=== PATIENT | male | born 1950 | race Hispanic/Latino ===

== ENCOUNTER → 2024-06-20 | Day surgery (SDC) | payer MEDICARE ==
[2024-06-17 13:29] LABS: BASOPHILS % 0.5 % (0.0-1.0); EOSINOPHILS # (AUTO) 0.2 (0.0-0.4); EOSINOPHILS % 2.3 % (0.0-6.0); HEMATOCRIT 49.7 % (38.2-49.6); HEMOGLOBIN 16.1 g/dL (14.0-18.0); LYMPHOCYTES # (AUTO) 2.1 (1.0-3.2); LYMPHOCYTES % 28.3 % (18.0-39.1); MEAN CORPUSCULAR HGB CONC 32.4 g/dL (31-35); MEAN CORPUSCULAR VOLUME 101.8 fL (81-99); MONOCYTES # (AUTO) 0.6 (0.2-0.8); MONOCYTES % 8.8 % (4.4-11.3); NEUTROPHILS # (AUTO) 4.4 (2.1-6.9); NEUTROPHILS % 59.7 % (38.7-80.0); PLATELET COUNT 171 x10e3/uL (140-360); RED BLOOD COUNT 4.88 x10e6/uL (4.3-5.7); RED CELL DISTRIBUTION WIDTH 12.8 % (11.7-14.4); WHITE BLOOD COUNT 7.31 x10e3/uL (4.8-10.8)
[2024-06-17 13:52] LABS: CREATININE, SERUM 0.78 mg/dL (0.72-1.25)
[2024-06-17 13:53] LABS: CALCIUM 9.4 mg/dL (8.4-10.2)
[~2024-06-20] MED LIST: FENTANYL CITRATE/PF 100MCG/2 ML INJ ONE; LACTATED RINGER'S 1,000 ML ONE; LIDOCAINE HCL 2% LOCAL INJ 5 ML SDV VIAL INJ ONE; MIDAZOLAM HCL 2 MG/2 ML VIAL ONE; MULTI-VITAMIN1 EACH PO; PROPOFOL IV EMULSION 10 MG/ML 20 ML VIAL ONE
[2024-06-20 13:19] VITALS: TEMP 97.6
[2024-06-20 13:40] VITALS: BP 140/90; PULSE 50; RESP 18; O2SAT 99
== END | disposition home or self-care (01) ==
LOC: OR 08:44
PROVIDERS: ATTEND Ophthalmology
DX: H11.052 Peripheral pterygium, progressive, left eye (principal); E66.01 Morbid (severe) obesity due to excess calories; I10 Essential (primary) hypertension; Z01.810 Encounter for preprocedural cardiovascular examination; Z01.812 Encounter for preprocedural laboratory examination
CPT/HCPCS: 36415; 65426; 80048; 85025; 88304; 93005; J2003; J2250; J2704; J3010; J7121; V2790

== ENCOUNTER → 2024-08-01 | Day surgery (SDC) | payer MEDICARE ==
[2024-07-30 13:53] LABS: BASOPHILS # (AUTO) 0.1 (0.0-0.1); BASOPHILS % 0.8 % (0.0-1.0); EOSINOPHILS # (AUTO) 0.2 (0.0-0.4); HEMATOCRIT 45.9 % (38.2-49.6); HEMOGLOBIN 16.5 g/dL (14.0-18.0); LYMPHOCYTES % 26.9 % (18.0-39.1); MEAN CORPUSCULAR HEMOGLOBIN 33.5 pg (28-32); MEAN CORPUSCULAR HGB CONC 35.9 g/dL (31-35); MEAN CORPUSCULAR VOLUME 93.3 fL (81-99); MONOCYTES # (AUTO) 0.7 (0.2-0.8); MONOCYTES % 8.9 % (4.4-11.3); NEUTROPHILS # (AUTO) 4.5 (2.1-6.9); PLATELET COUNT 199 x10e3/uL (140-360); RED BLOOD COUNT 4.92 x10e6/uL (4.3-5.7); RED CELL DISTRIBUTION WIDTH 13.7 % (11.7-14.4); WHITE BLOOD COUNT 7.44 x10e3/uL (4.8-10.8)
[2024-07-30 14:03] LABS: ANION GAP 14.9 mmol/L (8-16); CALCIUM 9.4 mg/dL (8.4-10.2); CREATININE, SERUM 0.81 mg/dL (0.72-1.25); POTASSIUM 3.9 mmol/L (3.5-5.1)
[~2024-08-01] MED LIST changes: -LACTATED RINGER'S 1,000 ML ONE; -LIDOCAINE HCL 2% LOCAL INJ 5 ML SDV VIAL INJ ONE; +ONDANSETRON HCL INJ 2MG/ML 2ML 2 MG/ML VIAL ONE
[2024-08-01] MEDS: LACTATED RINGER'S 1,000 ML ONE (09:15)
[2024-08-01] MEDS: CYCLOPENTOLATE HCL 2% OPTH SOLN 2 ML BTL OP ONE (09:16)
[2024-08-01] MEDS: GATIFLOXACIN(OPTH) 5 ML LIQD ONE (09:17)
[2024-08-01] MEDS: PHENYLEPHRINE HCL 2 ML DROPS ONE (09:18)
[2024-08-01 11:35] VITALS: BP 160/85; PULSE 45; RESP 16; TEMP 97.8; O2SAT 97
== END | disposition home or self-care (01) ==
LOC: OR 07:50
PROVIDERS: ATTEND Ophthalmology
DX: H25.12 Age-related nuclear cataract, left eye (principal); I10 Essential (primary) hypertension; Z01.812 Encounter for preprocedural laboratory examination
CPT/HCPCS: 36415; 66984; 80048; 85025; J2250; J2405; J2704; J3010; J7121; V2632